=== PATIENT | male | born 1985 | race Caucasian/White ===

== ENCOUNTER 2017-07-03 11:17 | Emergency (ER) | payer SELFPAY ==
[~2017-07-03] VITALS: Wt 75.0 kg
[2017-07-03] MEDS ORDERED: HYDROCODONE/APAP (5/325) TAB PO ONE (13:00)
[2017-07-03 13:37] LABS: URINE BLOOD (Dip) POC Trace-lysed (NEGATIVE)
--- NOTE | 2017-07-03 14:50 | RADRPT ---
PROCEDURE: XR Left ribs 3 views. CLINICAL INDICATION: Left chest pain and trauma. TECHNIQUE: AP and Two oblique views of the left ribs were obtained. COMPARISON: None. FINDINGS: Mildly displaced fracture through the posterior left tenth rib is observed. The remaining osseous st ructures appear intact. No destructive bony lesions are identified. The visualized lungs are clear. IMPRESSION: Posterior left tenth rib fracture. If there is high clinical suspicion for additional traumatic injury, further evaluation with CT shou ld be considered. RPTAT: AA .Alek Davis MD, Date Time Electronically viewed and signed by .Alek Davis MD, on 07/03/2017 14:49 .P/
--- NOTE | 2017-07-03 14:55 | ERD ---
ER Documentation Chief Complaint Date/Time DATE: 07/03/17 TIME: 14:54 Chief Complaint back pain s/p trauma HPI This a 31-year-old male who presents to the emergency department today complaining of low back pain. States he went to his primary care doctor Dr. Stout, and was sent here for further evaluation and a CT scan. States he was playing kickball on Saturday night when he went to jump over a wall to get a ball that had left the area and he slipped and fell on the wall and landed on a box. States that he did go to [facility] on Saturday and was told everything was fine was given Motrin for pain and states that that is not helping. Denies any previous trauma, fevers or chills, dysuria,, hematuria loss of bowel or bladder control. Denies any chest pain or shortness of breath ROS All systems reviewed and are negative except as per history of present illness. Medications Home Meds Active Scripts Naproxen* (Naprosyn*) 500 Mg Tablet, 500 MG PO BID Y for PAIN AND/OR INFLAMMATION, #30 TAB Prov:DULCE AQUINO PA-C 07/03/17 Hydrocodone/Acetaminophen ([place] 5-325 Tablet) 1 Each Tablet, 1 TAB PO Q6H Y for PAIN, #12 TAB Prov:DULCE AQUINO PA-C 07/03/17 Allergies Allergies: Coded Allergies: No Known Allergy (Unverified , 07/03/17) PMhx/Soc Medical and Surgical Hx: pt denies Medical Hx, pt denies Surgical Hx Hx Alcohol Use: No Hx Substance Use: No Hx Tobacco Use: No Smoking Status: Never smoker Physical Exam Vitals Vital Signs Date Time Temp Pulse Resp B/P Pulse Ox O2 Delivery O2 Flow Rate FiO2 07/03/17 17:05 73 20 131/91 100 Room Air 07/03/17 11:45 98.0 92 20 124/75 98 Physical Exam Const: No acute distress Head: Atraumatic Eyes: Normal Conjunctiva ENT: Normal External Ears, Nose and Mouth. Neck: Full range of motion..~ No meningismus. Resp: Clear to auscultation bilaterally. No absent breath sounds. No wheezing. Tenderness palpation left side of ribs Cardio: Regular rate and rhythm, no murmurs Abd: Soft, non tender, non distended. Normal bowel sounds Skin: No petechiae or rashes Back: Lumbar spine mild midline tenderness. Left-sided paraspinal tenderness. Mild ecchymosis left flank Ext: No cyanosis, or edema Neur: Awake and alert Psych: Normal Mood and Affect Results 24 hrs Laboratory Tests Test 07/03/17 13:43 Bedside Urine pH (LAB) 6.0 Bedside Urine Protein (LAB) Trace Bedside Urine Glucose (UA) Negative Bedside Urine Ketones (LAB) Negative Bedside Urine Blood Trace-lysed Bedside Urine Nitrite (LAB) Negative Bedside Urine Leukocyte Esterase (L Negative Current Medications Medications (Trade) Dose Ordered Sig/Regine Route PRN Reason Start Time Stop Time Status Last Admin Dose Admin Acetaminophen/ Hydrocodone Bitart ([place] (5/325)) 1 tab ONCE ONCE PO 07/03/17 13:00 07/03/17 13:01 DC 07/03/17 13:22 DIAGNOSTIC IMAGING REPORT Patient: MATTEO YANCEY : 1985 Age: 31 Sex: M MR #: [id number] DOS: 07/03/17 0000 Ordering MD: DULCE AQUINO PA-C Location: [facility] Room/Bed: PROCEDURE: XR Left ribs 3 views. CLINICAL INDICATION: Left chest pain and trauma. TECHNIQUE: AP and Two oblique views of the left ribs were obtained. COMPARISON: None. FINDINGS: Mildly displaced fracture through the posterior left tenth rib is observed. The remaining osseous structures appear intact. No destructive bony lesions are identified. The visualized lungs are clear. IMPRESSION: Posterior left tenth rib fracture. If there is high clinical suspicion for additional traumatic injury, further evaluation with CT should be considered. RPTAT: AA .Alek Davis MD, MD Date Time Electronically viewed and signed by .Alek Davis MD, MD on 07/03/2017 14:49 .P/ CC: DULCE AQUINO PA-C DIAGNOSTIC IMAGING REPORT Patient: MATTEO YANCEY : 1985 Age: 31 Sex: M MR #: [id number] [facility] #: [id number] DOS: 07/03/17 0000 Ordering MD: DULCE AQUINO PA-C Location: [facility] Room/Bed: PROCEDURE: CT L-Spine. CLINICAL INDICATION: Back pain TECHNIQUE: A CT of the lumbar spine was performed on a multidetector CT scanner utilizing axial images from the thoracic lumbar junction through the lumbar sacral junction. Sagittal and coronal reformatted images were made. The CTDIvol is 8mGy and the DLP is 219mGycm. One or more of the following dose reduction techniques were used: Automated exposure control, Adjustment of the mA and/or kV according to patient size, and/or use of iterative reconstruction technique. COMPARISON: None available. FINDINGS: 6 lumbar-type vertebrae are identified. For the purposes of this report, the superior most fully imaged vertebral body on the sagittal re-formation sequence will be classified as L1. The lumbar vertebrae well be counted as L1-L6. Using this lumbar nomenclature, there are acute displaced fractures of the left transverse process of L3 through L5 (series 3 image 35, 46, 60). No acute lumbar vertebral body compression fracture. L1-2: The disk space height is maintained. No bony spinal canal or bony foraminal narrowing. L2-3: The disk space height is maintained. No bony spinal canal or bony foraminal narrowing. L3-4: The disk space height is maintained.No bony spinal canal or bony foraminal narrowing. L4-5: The disk space height is maintained.No bony spinal canal or bony foraminal narrowing. L5-L6: The disk space height is maintained.No bony spinal canal or bony foraminal narrowing. There is a well formed disk at L6-S1. IMPRESSION: 6 lumbar-type vertebrae are identified. For the purposes of this report, the superior most fully imaged vertebral body on the sagittal re-formation sequence will be classified as L1. The lumbar vertebrae well be counted as L1-L6. Using this lumbar nomenclature, there are acute displaced fractures of the left transverse process of L3 through L5/ RPTAT: AA .Higinio Menchaca MD, MD Date Time Electronically viewed and signed by .Higinio Menchaca MD, on 07/03/2017 15:22 .T/ CC: DULCE AQUINO PA-C Procedures/MDM This 31-year-old male who presents the emergency department today complaining of back pain for the past 5 days after sustaining a trauma and falling after jumping over a wall while playing kickball. Emergency department did receive a call from Dr. Stout about this patient and he is requesting a CT scan. UA shows negative for infection and trace lysed blood. Patient denied hematuria. Low suspicion for kidney laceration at this time. Patient has no CVA tenderness. Dedicated left ribs show a mildly displaced posterior left 10th rib fracture. Visualized lungs are clear CT lumbar spine shows there are acute displaced fractures of the left transverse processes of L3 through L5. There is no acute lumbar vertebral body compression fracture. Disc heights are well-maintained. There is no foraminal narrowing. Patient symptoms at this time is consistent with multiple displaced fractures of the transverse process of the lumbar spine and left sided rib fracture. This is likely the source of the patient's pain. Patient has no loss of bowel or bladder control and of low suspicion for cauda equina or abscess. Patient was given [place] here in the emergency department and reported that improved his pain. Patient was given a prescription for [place] and Naprosyn for home. I also gave him a work note instructed to follow-up with his primary care doctor for referral to public transit specialist. Patient understood. Departure Diagnosis: Primary Impression: Lumbar transverse process fracture Encounter type: initial encounter Fracture type: closed Qualified Code: S32.008A - Lumbar transverse process fracture, closed, initial encounter Additional Impression: Rib fracture Encounter type: initial encounter Rib fracture type: single rib Fracture type: closed Laterality: left Qualified Code: S22.32XA - Closed fracture of one rib of left side, initial encounter Condition: Fair DULCE AQUINO PA-C Jul 03, 2017 14:52
--- NOTE | 2017-07-03 15:22 | RADRPT ---
PROCEDURE: CT L-Spine. CLINICAL INDICATION: Back pain TECHNIQUE: A CT of the lumbar spine was performed on a multidetector CT scanner utilizing axial im ages from the thoracic lumbar junction through the lumbar sacral junction. Sagittal and coronal ref ormatted images were made. The CTDIvol is 8mGy and the DLP is 219mGycm. One or more of the following dose reduction techniques were used: Automated exposure control, Adjustment of the mA and/or kV acc ording to patient size, and/or use of iterative reconstruction technique. COMPARISON: None available. FINDINGS: 6 lumbar-type vertebrae are identified. For the purposes of this report, the superior most fully jayashree ged vertebral body on the sagittal re-formation sequence will be classified as L1. The lumbar verteb lori well be counted as L1-L6. Using this lumbar nomenclature, there are acute displaced fractures of the left transverse process o f L3 through L5 (series 3 image 35, 46, 60). No acute lumbar vertebral body compression fracture. L1-2: The disk space height is maintained. No bony spinal canal or bony foraminal narrowing. L2-3: The disk space height is maintained. No bony spinal canal or bony foraminal narrowing. L3-4: The disk space height is maintained.No bony spinal canal or bony foraminal narrowing. L4-5: The disk space height is maintained.No bony spinal canal or bony foraminal narrowing. L5-L6: The disk space height is maintained.No bony spinal canal or bony foraminal narrowing. There is a well formed disk at L6-S1. IMPRESSION: 6 lumbar-type vertebrae are identified. For the purposes of this report, the superior most fully jayashree ged vertebral body on the sagittal re-formation sequence will be classified as L1. The lumbar verteb lori well be counted as L1-L6. Using this lumbar nomenclature, there are acute displaced fractures of the left transverse process o f L3 through L5/ RPTAT: AA .Higinio Menchaca MD, Date Time Electronically viewed and signed by .Higinio Menchaca MD, MD on 07/03/2017 15:22 .T/
[2017-07-03] MEDS ORDERED: HYDR-906 PO (16:34)
[2017-07-03] MEDS ORDERED: NAPR-260 PO (16:34)
[2017-07-03 17:05] VITALS: BP 131/91; PULSE 73; RESP 20
== END 2017-07-03 17:12 | disposition home or self-care (01) ==
LOC: FTE 11:17
DX: S32.038A Other fracture of third lumbar vertebra, initial encounter for closed fracture (principal); S22.32XA Fracture of one rib, left side, initial encounter for closed fracture; W01.198A Fall on same level from slipping, tripping and stumbling with subsequent striking against other object, initial encounter; Y92.9 Unspecified place or not applicable
CPT/HCPCS: 71100; 72131; 81003

== ENCOUNTER 2017-09-22 02:07 | Emergency (ER) | payer OTHER ==
[~2017-09-22] VITALS: Ht 152.4 cm; Wt 60.0 kg
[~2017-09-22 02:07] MED LIST: HYDR-906 PO; NAPR-260 PO
[2017-09-22 02:35] VITALS: Ht 152.4 cm; Wt 60.0 kg
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
[2017-09-22 03:41] VITALS: BP 125/74; PULSE 79; RESP 18
== END 2017-09-22 03:19 | disposition home or self-care (01) ==
LOC: E/R 02:07
DX: T65.91XA Toxic effect of unspecified substance, accidental (unintentional), initial encounter (principal)
CPT/HCPCS: 99282